=== PATIENT | female | born 1930 | race Caucasian/White ===

== ENCOUNTER 2018-10-18 12:16 | Emergency (ER) | payer MEDICARE ==
[~2018-10-18] VITALS: Ht 160 cm; Wt 71.7 kg
[~2018-10-18 12:16] MED LIST: ALBU90OI6 INH; DIGO.25 PO; FLUSAL1005 IH; NEBI10 PO; PRED10 PO; PROACE100 PO; Prilosec PO; Veetids 500500 MG PO
[2018-10-18] MEDS ORDERED: ALBU90OI61 INH (12:39)
[2018-10-18 13:03] LABS: BASOPHILS ABSOLUTE AUTO 0.03 K/mm3 (0.00-0.23); BASOPHILS PERCENT AUTO 1 % (0-2); EOSINOPHILS ABSOLUTE AUTO 0.06 K/mm3 (0.00-0.68); EOSINOPHILS PERCENT AUTO 1 % (0-6); Hematocrit 37.3 % (33.0-51.0); Hemoglobin 11.4 g/dL (11.5-16.0); IMMATURE GRAN ABSOLUTE AUTO 0.02 K/mm3 (0.00-0.10); IMMATURE GRAN PERCENT AUTO 0 % (0-1); LYMPHOCYTES ABSOLUTE AUTO 1.17 K/mm3 (0.84-5.20); LYMPHOCYTES PERCENT AUTO 18 % (21-46); MONOCYTES ABSOLUTE AUTO 0.34 K/mm3 (0.16-1.47); MONOCYTES PERCENT AUTO 5 % (4-13); Mean Corpuscular HGB 28.4 pg (26.0-34.0); Mean Corpuscular HGB Conc 30.6 g/dL (31.5-36.5); Mean Corpuscular Volume 93 fL (80-100); NEUTROPHILS ABSOLUTE AUTO 4.92 K/mm3 (1.96-9.15); NEUTROPHILS PERCENT AUTO 75 % (41-73); Platelet Count 174 K/mm3 (150-400); RDW Coefficient Variation 13.1 % (11.7-14.2); RDW Standard Deviation 45.1 fL (35.1-46.3); Red Blood Cell Count 4.02 M/mm3 (3.80-5.20); White Blood Cell Count 6.54 K/mm3 (4.00-11.30)
[2018-10-18 13:25] LABS: Alanine Aminotransfer (ALT/SGP 15 U/L (12-78); Albumin, Blood 3.3 g/dL (3.4-5.0); Alk Phos 66 U/L (50-136); Anion Gap 4 mmol/L (6-16); Aspartate Aminotrans (AST/SGOT 19 U/L (12-37); Bilirubin, Total 0.5 mg/dL (0.1-1.0); Blood Urea Nitrogen 22 mg/dL (8-24); Bun/Creatinine Ratio 22.5 (12.0-20.0); CO2, Blood 28 mmol/L (21-32); Calcium, Blood 9.4 mg/dL (8.5-10.1); Chloride, Blood 110 mmol/L (98-108); Creatinine, Blood 0.98 mg/dL (0.40-1.00); Globulin, Blood 3.4 g/dL (2.2-4.0); Glomerular Filtration Rate 57 (60-); Glucose, Blood 110 mg/dL (70-99); Potassium, Blood 4.2 mmol/L (3.5-5.5); Sodium, Blood 142 mmol/L (136-145); Total Protein, Blood 6.7 g/dL (6.4-8.2); Troponin I <0.015 ng/mL (0.000-0.040)
[2018-10-18 14:01] LABS: Source, Urine Clean Catch
[2018-10-18] MEDS ORDERED: OMEPRAZOLE MAGN20 MG PO (14:04)
[2018-10-18 14:13] LABS: Appearance, Urine Clear (Clear); Bilirubin, Urine Neg (Neg); Blood, Urine Neg (Neg); Color, Urine Yellow (P-Yellow); Glucose Qualitative, Urine Neg (Neg); Ketones, Urine Neg (Neg); Leukocyte Esterase, Urine Neg (Neg); Nitrite, Urine Pos (Neg); Protein, Urine Neg (Neg); Urobilinogen, Urine NORM (Normal)
[2018-10-18 14:27] LABS: Bacteria Many /hpf; Red Blood Cells, Urine Not Seen /hpf (0-2); Squamous Epithelial Cells Rare /hpf (Few)
== END 2018-10-18 15:45 | disposition home or self-care (01) ==
LOC: ER 12:16
PROVIDERS: Physician Assistant
DX: R55 Syncope and collapse (principal); Z95.0 Presence of cardiac pacemaker
CPT/HCPCS: 36415; 70450; 80053; 81001; 82947; 83880; 84484; 85025; 87077; 87086; 87186; 93005; 93010; 96360; 96361; 99284-25; J7030

== ENCOUNTER 2019-01-21 16:09 | Emergency (ER) | payer MEDICARE ==
[~2019-01-21 16:09] MED LIST changes: +ALBU90OI61 INH; +OMEPRAZOLE MAGN20 MG PO
== END 2019-01-21 16:44 | disposition left against medical advice (07) ==
LOC: ER 16:09
DX: Z53.21 Procedure and treatment not carried out due to patient leaving prior to being seen by health care provider (principal)

== ENCOUNTER 2021-01-02 09:29 | Emergency (ER) | payer MEDICARE ==
[~2021-01-02] VITALS: Ht 160 cm; Wt 68.0 kg
[~2021-01-02 09:29] MED LIST changes: +Magic Bullet10 MG PR; +Magnesium Citr296 ML PO
[2021-01-02] MEDS ORDERED: MAGCIT300 PO (11:02)
== END 2021-01-02 11:16 | disposition home or self-care (01) ==
LOC: ER 09:29
DX: K59.00 Constipation, unspecified (principal); Z88.2 Allergy status to sulfonamides; Z79.899 Other long term (current) drug therapy; Z95.0 Presence of cardiac pacemaker
CPT/HCPCS: 74018; 99283-25